=== PATIENT | female | born 1985 | race Caucasian/White ===

== ENCOUNTER → 2019-01-03 | Emergency (ER) | payer SELFPAY ==
[2019-01-03] MEDS: LORAZEPAM 1 MG TAB PO (16:13)
== END | disposition home or self-care (01) ==
LOC: E/R 15:44
DX: J06.9 Acute upper respiratory infection, unspecified (principal); G40.909 Epilepsy, unspecified, not intractable, without status epilepticus
CPT/HCPCS: 99283